=== PATIENT | male | born 1960 | race Caucasian/White ===

== ENCOUNTER → 2019-10-19 | Day surgery (SDC) | payer MEDICARE ==
[~2019-10-19] MED LIST: FENTANYL CITRATE/PF 100MCG/2 ML INJ ONE; GABAPENTIN300 MG PO; HUMALOG PUMP; MIDAZOLAM HCL 2 MG/2 ML VIAL ONE; OR PHACO EYE KIT ONE; PREOP PHACO EYE KIT ONE; RAMIPRIL5 MG PO; SIMVASTATIN20 MG PO; SINGULAIR10 MG PO; SYNTHROID75 MCG PO
[2019-10-19 15:07] VITALS: BP 115/60
== END | disposition home or self-care (01) ==
LOC: OR 10-18 10:21
PROVIDERS: ATTEND Ophthalmology
DX: H25.12 Age-related nuclear cataract, left eye (principal); E10.9 Type 1 diabetes mellitus without complications; E03.9 Hypothyroidism, unspecified; J45.909 Unspecified asthma, uncomplicated; I10 Essential (primary) hypertension; Z79.4 Long term (current) use of insulin
CPT/HCPCS: 36415; 66984; 82948; J2250; J3010; V2632